=== PATIENT | male | born 1995 | race Caucasian/White ===

== ENCOUNTER 2021-04-07 10:58 | Emergency (ER) | payer MEDICAID ==
[~2021-04-07] VITALS: Ht 185.4 cm; Wt 69.1 kg
[2021-04-07 12:41] VITALS: BP 136/85
== END 2021-04-07 13:13 | disposition home or self-care (01) ==
LOC: EMS 11:10
DX: F11.10 Opioid abuse, uncomplicated (principal); F17.210 Nicotine dependence, cigarettes, uncomplicated
CPT/HCPCS: 99281; 99283

== ENCOUNTER 2021-05-03 19:46 | Emergency (ER) | payer MEDICAID ==
[~2021-05-03] VITALS: Ht 188 cm; Wt 70.5 kg
[2021-05-03 19:55] VITALS: BP 121/81
== END 2021-05-03 21:30 | disposition home or self-care (01) ==
LOC: EMS 19:50
DX: G47.00 Insomnia, unspecified (principal); F11.90 Opioid use, unspecified, uncomplicated; F17.210 Nicotine dependence, cigarettes, uncomplicated
CPT/HCPCS: 99282; Z7502